=== PATIENT | female | born 1960 ===

== ENCOUNTER 2023-06-10 09:24 | Outpatient (OUT) | payer OTHER, SELFPAY ==
--- NOTE | 2023-06-10 09:52 | XR_ITS ---
The [address] [address] Patient Name: ANDREA RAM MRN: [id number] date: 1960 Sex: F Assigned Patient Location: [facility] Current Patient Location: [facility] Accession/Order Number: [id number] Exam Date: 06/10/2023 09:50 Report Date: 06/10/2023 17:28 At the request of: SUNG VIVEROS Procedure: XR foot IMMANUEL min 3V EXAMINATION: XR foot IMMANUEL min 3V HISTORY: BILATERAL FOOT PAIN COMPARISON: No relevant comparison available. FINDINGS: RIGHT FINDINGS: BONES: Mild bone hypertrophy the head of the first metatarsal. Medial deviation of the second toe and likely persistent flexion. Mild loss of plantar arch. SOFT TISSUES: No visible soft tissue swelling. OTHER: Negative. LEFT FINDINGS: BONES: Mild deviation of the second third toes and likely mild persistent flexion. Prior osteotomy and repair of the first metatarsal. Loss of plantar arch. SOFT TISSUES: No visible soft tissue swelling. OTHER: Negative. XR/XR foot IMMANUEL min 3V IMPRESSION: RIGHT CONCLUSION: Mild bunion formation and possible hammertoe of the second digit. Mild pes planus. LEFT CONCLUSION: Medial deviation of the second third toes; possible hammertoe. Pes planus. Electronically authenticated by: KALIE ALSTON Date: 06/10/2023 17:28
== END 2023-06-10 09:25 | disposition home or self-care (01) ==
LOC: RAD 09:25
PROVIDERS: Visit Provider Podiatrist Foot & Ankle Surgery
DX: M79.671 Pain in right foot (principal); M79.672 Pain in left foot; M21.41 Flat foot [pes planus] (acquired), right foot; M21.42 Flat foot [pes planus] (acquired), left foot
CPT/HCPCS: 73630